=== PATIENT | male | born 1990 | race Two or more races ===

== ENCOUNTER 2021-04-06 07:34 | Emergency (ER) | payer OTHER ==
[~2021-04-06] VITALS: Ht 175.3 cm; Wt 74.7 kg
[2021-04-06 07:38] VITALS: BP 129/90
== END 2021-04-06 08:38 | disposition home or self-care (01) ==
LOC: ED 08:00
DX: Z20.822 Contact with and (suspected) exposure to COVID-19 (principal)
CPT/HCPCS: 99283; U0003; U0005

== ENCOUNTER 2021-04-11 08:46 | Emergency (ER) | payer OTHER ==
[~2021-04-11] VITALS: Ht 175.3 cm; Wt 74.8 kg
--- NOTE | 2021-04-11 09:23 | NUR ---
PT. TO ED AFTER COVID EXPOSURE AT WORK. PT. HAD BEEN TESTED BUT PER [employer] PT. WAS TESTED TOO CLOSE TO EXPOSURE DATE. PT. NOW C/O NASAL CONGESTION AND VICTOR SINCE SUNDAY LAST WEEK. PT. STATES "I THINK IT'S RELATED TO THE SMOKE". PT. C/O SOME GI "UPSET" BUT DENIES DIARRHEA TO THIS RN. DENIES N/V WELL. AWAITING PROVIDER EVAL. SPO2 MONITOR IN PLACE.
--- NOTE | 2021-04-11 10:04 | NUR ---
KWABENA GILMAN IN TO EVCLEMENCIA PT. AND DISCUSS POC. COVID SWAB IN LAB.
[2021-04-11 10:51] VITALS: BP 131/85
== END 2021-04-11 10:58 | disposition home or self-care (01) ==
LOC: ED 09:22
DX: B34.9 Viral infection, unspecified (principal); R19.7 Diarrhea, unspecified; Z20.822 Contact with and (suspected) exposure to COVID-19
CPT/HCPCS: 99283; U0003; U0005